=== PATIENT | female | born 1970 | race Caucasian/White ===

== ENCOUNTER → 2018-04-25 | Day surgery (SDC) | payer OTHER ==
[2018-04-23 15:50] LABS: ANION GAP 13.6 mmol/L (8-16); BLOOD UREA NITROGEN 14 mg/dL (7-26); BUN/CREATININE RATIO 19 (6-25); CALCIUM 9.1 mg/dL (8.4-10.2); CARBON DIOXIDE 28 mmol/L (22-29); CHLORIDE 99 mmol/L (98-107); CREATININE, SERUM 0.74 mg/dL (0.57-1.11); EST GLOMERULAR FILTRATION RATE > 60 ML/MIN (60-); GLUCOSE 84 mg/dL (74-118); POTASSIUM 3.6 mmol/L (3.5-5.1); SODIUM 137 mmol/L (136-145)
[~2018-04-25] MED LIST: ATENOLOL25 MG PO; DEXAMETHASONE SOD PHOS INJ 4 MG/ML VIAL ONE; FENTANYL CITRATE/PF 100MCG/2 ML INJ ONE; FUROSEMIDE20 MG PO; GENTAMICIN 80MG/NS 100 ML 100 ML IV ONE; IOPAMIDOL 610MG/1ML 300 MG/ML VIAL IV ONE; KLOR-CON 1010 MEQ PO; LIDOCAINE HCL 2% LOCAL INJ 5 ML SDV VIAL INJ ONE; MIDAZOLAM HCL 2 MG/2 ML VIAL ONE; ONDANSETRON HCL INJ 2MG/ML 2ML 2 MG/ML VIAL ONE; PROPOFOL IV EMULSION 10 MG/ML 20 ML VIAL ONE; SEVOFLURANE INHAL SOLN 250 ML PEN BTL ONE; SIMVASTATIN20 MG PO
--- OUTSIDE RECORDS SUMMARY | 2018-04-25 12:21 | XMS REPORT ---
Author Author [facility] Address Unknown Phone Unavailable Care Team Providers Care Bus System Operator Name Role Phone Unavailable Unavailable Problems This patient has no known problems. Allergies, Adverse Reactions, Alerts This patient has no known allergies or adverse reactions. Medications This patient has no known medications.
[2018-04-25 17:00] VITALS: BP 159/80
--- NOTE | 2018-04-30 10:32 | Operative Report ---
DATE OF PROCEDURE: April 25, 2018 PREOPERATIVE DIAGNOSES 1. Foreign body, right ureter. 2. Indwelling right ureteral stent. 3. Right ureteral calculus. POSTOPERATIVE DIAGNOSES 1. Foreign body, right ureter. 2. Indwelling right ureteral stent. 3. Right ureteral calculus. PROCEDURES 1. Cystourethroscopy with removal of right indwelling ureteral stent (entirely separate procedure for the diagnosis of right indwelling ureteral stent). 2. Right-sided ureteroscopy with laser lithotripsy (entirely separate procedure for the right ureteral calculi). 3. Cystourethroscopy with insertion of a right indwelling ureteral stent (entirely separate procedure for the diagnosis of right hydronephrosis). 4. Supervision of fluoroscopy. 5. Interpretation of retrograde pyelography. ANESTHESIA: General. ESTIMATED BLOOD LOSS: Minimal. COMPLICATIONS: None. INDICATIONS FOR PROCEDURE: Ms. Byers is a very pleasant, 47-year-old female who had undergone a previous ureteroscopy with stone manipulation by a doctor at [facility] as well as [facility]. This doctor was Dr. Bryant Bledsoe. The patient has been having multiple stone formations in the interim. She now presents with a stent for definitive ureteroscopy, laser lithotripsy and hopefully removal of basket fragments. The patient and I had a long discussion regarding the alternatives, risks and benefits, including doing nothing, shock-wave lithotripsy, ureteroscopy, percutaneous surgery, open surgery. She voiced an understanding of the options, the alternatives, and the risks and benefits, and she elected to undergo ureteroscopic attempt of this. PROCEDURE IN DETAIL: After informed consent was obtained, the patient was taken to the operative suite and placed supine on the table and underwent general anesthesia by the anesthesia service. She was placed in the dorsal lithotomy position. She was sterilely prepped and draped in the standard fashion for cystoscopy. A 22.5-Chinese cystoscope was inserted per urethra. A normal urethra was noted. Panendoscopy of the bladder revealed no tumors and no stones. A stent was seen extruding from the right ureteral orifice. This was grasped. It was removed intact. A guidewire was inserted. The ureteroscope was advanced to the level of the basket fragments and stones, best seen in photographic image #2. Utilizing a 365-micron laser fiber, all calculi were dusted and turned into fragments. Image #1 shows the tip in the edge of the basket. Image #3 shows several of the embedded wire fragments in the ureter. I was able to grasp and remove one of the fragments by pulling antegrade. However, the other fragments could not be grasped with a grasper. Upon pulling on them, it moved the entire ureter. At this time, with the inability to remove any more of the fragments, we placed a ureteral stent and drained the bladder. The patient was awakened from anesthesia and transported to the recovery room in excellent condition. I had an extensive discussion with the patient's regarding the likely need for either excision of the ureteral segment with primary anastomosis versus possible Boari flap/psoas hitch versus possible need for ileal ureter. Likely will [facility], Dr. Islas, for robotic procedure. Job#: [id number]
== END | disposition home or self-care (01) ==
LOC: OR 12:19
PROVIDERS: ATTEND Urology
DX: N20.1 Calculus of ureter (principal); Z46.6 Encounter for fitting and adjustment of urinary device; N13.30 Unspecified hydronephrosis; N39.0 Urinary tract infection, site not specified; I10 Essential (primary) hypertension; E78.00 Pure hypercholesterolemia, unspecified; R00.1 Bradycardia, unspecified; F41.9 Anxiety disorder, unspecified; Z88.2 Allergy status to sulfonamides; Z01.810 Encounter for preprocedural cardiovascular examination; Z01.812 Encounter for preprocedural laboratory examination; Z68.33 Body mass index [BMI] 33.0-33.9, adult
CPT/HCPCS: 36415; 52356; 80048; 88300; 93005; C2617; J1100; J1580; J2001; J2250; J2405; J2704; Q9967; 76000